=== PATIENT | female | born 2000 | race Caucasian/White ===

== ENCOUNTER 2024-06-17 22:23 | Emergency (ER) | payer SELFPAY ==
[2024-06-17 22:41] VITALS: BP 110/67; PULSE 71; RESP 17; TEMP 98.8; BMI 44.1
[2024-06-17] MEDS ORDERED: IBUPROFEN 600 MG TABLET (FP) PO ONE (23:19)
[2024-06-17] MEDS: IBUPROFEN 600 MG TABLET (FP) PO ONE (23:23)
== END 2024-06-18 01:17 | disposition home or self-care (01) ==
LOC: FER 22:23
DX: S93.402A Sprain of unspecified ligament of left ankle, initial encounter (principal); X50.1XXA Overexertion from prolonged static or awkward postures, initial encounter; Y93.01 Activity, walking, marching and hiking
CPT/HCPCS: 73610-TC-LT-FY; 73630-TC-LT; 99283-25